=== PATIENT | female | born 1960 | race Caucasian/White ===

== ENCOUNTER 2017-08-04 23:12 | Observation (INO) | payer BC, OTHER ==
[2017-08-04] MEDS ORDERED: diphenhydrAMINE HCL 50 MG/ML VIAL ONE (23:22)
[2017-08-04] MEDS ORDERED: methylPREDNISolone SODIUM SUC 125 MG/2 ML VIAL ONE (23:22)
[2017-08-04] MEDS ORDERED: EPINEPHrine HCL AMP 1 MG/ML AMP ONE (23:24)
[2017-08-04] MEDS ORDERED: SODIUM CHLORIDE 0.9% 1000ML 1,000 ML ONE (23:28)
[2017-08-04] MEDS ORDERED: SODIUM CHLORIDE 0.9% (FLUSH) 10 ML SYG IV PRN (23:30)
[2017-08-04] MEDS ORDERED: methylPREDNISolone SODIUM SUC 125 MG/2 ML VIAL IV ONE (23:32)
[2017-08-04] MEDS ORDERED: diphenhydrAMINE HCL 50 MG/ML VIAL IV ONE ×2 (23:33→23:53)
[2017-08-04] MEDS ORDERED: EPINEPHrine INJ 0.1 MG/ML 10 ML SYG INJ ONE (23:33)
[2017-08-04] MEDS ORDERED: SODIUM CHLORIDE 0.9% 1000ML 1,000 ML IVS ONE (23:35)
[2017-08-04] MEDS ORDERED: LEVALBUTEROL NEBS 1.25 MG/3 ML VIAL NEB ONE (23:49)
--- NOTE | 2017-08-05 00:08 | RAD ---
EXAM DESCRIPTION: Chest,1 View CLINICAL HISTORY: 56 years, Female, resp distress COMPARISON: None. FINDINGS: A single frontal chest radiograph was performed. The lungs are moderately expanded and clear. The costophrenic sulci are sharp. The cardiac silhouette, hilar regions, trachea, soft tissues and bony structures are unremarkable. IMPRESSION: No acute cardiopulmonary disease. Electronically signed by: Svetlana Vazquez MD 08/05/2017 12:07 AM [facility]
[2017-08-05] MEDS ORDERED: EPINEPHrine HCL AMP 1 MG/ML AMP ONE (00:11)
[2017-08-05] MEDS ORDERED: EPINEPHrine HCL AMP 1 MG/ML AMP SUBCU ONE (00:14)
[2017-08-05] MEDS ORDERED: ALUM & MAG HYDROX-SIMETHICONE 30 ML, LIDOCAINE VISCOUS 2% 15 ML PO ONE ×2 (00:15)
[2017-08-05] MEDS ORDERED: SUCRALFATE 1 GM/10 ML 1 GM UD PO ONE (00:16)
[2017-08-05] MEDS ORDERED: ALUM & MAG HYDROX-SIMETHICONE 30 ML UD ONE (00:19)
[2017-08-05] MEDS ORDERED: LIDOCAINE HCL 2% (MOUTH-THROAT) 15 ML UD ONE (00:19)
--- NOTE | 2017-08-05 01:05 | ED.PDOC ---
History of Present Illness - General Chief Complaint: Respiratory Problem Stated Complaint: difficulty breathing Time Seen by Provider: 08/04/17 23:16 Source: patient Exam Limitations: no limitations - History of Present Illness Initial Comments: Judy Soto 56 y/o female brought by pov with chest tightness and SOB after taking cough medicine with codine and chlorphenamine.Had recently been recovering from flu A and was home for the last 7 days.Had been afebrile but with slightly productive cough still lingers and took first dose of the cough medication tonight which cause the above symptoms.Denies chronic medical problems. Timing/Duration: 1-3 hours Severity: moderate Activities at Onset: rest Possible Cause: no prior episodes Improving Factors: nothing Worsening Factors: nothing Associated Symptoms: other - see hpi Respiratory Risk Factors: other - recent flu a Allergies/Adverse Reactions: Allergies NO KNOWN ALLERGY Allergy (Verified 08/04/17 23:30) Home Medications: Ambulatory Orders Propranolol HCl [Propranolol HCl ER] 60 mg PO DAILY 06/11/13 Dexlansoprazole [Dexilant] 60 mg PO DAILY 02/20/14 Ibuprofen-Diphenhydramine HCl [Advil Pm] 1 cap PO PRN PRN 02/20/14 Review of Systems - Review of Systems Constitutional: States: no symptoms reported EENTM: States: no symptoms reported Respiratory: States: see HPI Cardiology: States: see HPI Gastrointestinal/Abdominal: States: no symptoms reported Genitourinary: States: no symptoms reported Musculoskeletal: States: no symptoms reported Skin: States: no symptoms reported Neurological: States: no symptoms reported All other Systems: Reviewed and Negative, No Change from Baseline Past Medical History (General) - Patient Medical History Hx Asthma: No Hx Congestive Heart Failure: No Hx Diabetes: No Hx Gastroesophageal Reflux: No Surgical History: cholecystectomy, other - gastric sleeve,btl - Vaccination History Hx Influenza Vaccination: Yes Hx Pneumococcal Vaccination: No - Social History Hx Alcohol Use: Yes - occ Hx Substance Use: No Hx Physical Abuse: No Hx Emotional Abuse: No Hx Suspected Abuse: No - Activities of Daily Living Patient Lives Alone: No - family Family Medical History - Family History Mother Family History: Unknown Physical Exam - Physical Exam General Appearance: Anxious, No apparent distress Eyes, Ears, Nose, Throat Exam: PERRL/EOMI, normal ENT inspection, pharynx normal Neck: full range of motion, supple, normal inspection Respiratory: chest non-tender, no respiratory distress, other - coarse breath sounds Cardiovascular/Chest: normal peripheral pulses, regular rate, rhythm, no murmur Peripheral Pulses: radial,right: 2+, radial,left: 2+ Gastrointestinal/Abdominal: normal bowel sounds, non tender, soft Extremity: normal range of motion, non-tender, no pedal edema, no calf tenderness Neurologic: no motor/sensory deficits, oriented x 3 Skin Exam: normal color, warm/dry Progress - Progress Progress: 08/05/17 01:08 Last Vital Signs Temp 98 F 08/04/17 23:35 Pulse 86 08/05/17 00:45 Resp 28 H 08/05/17 00:45 BP 135/78 08/05/17 00:45 Pulse Ox 99 08/05/17 00:45 She was given Epinephrine 0.3 mg im,Solu Medrol 125mg iv,Benadryl 25 mg iv has stable vital signs on arrival and was placed on [facility] oxygen after she had multiple 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 of 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 lasting for 1-2 minutes and has it almost every 20-25 minutes occurrence - Results/Orders Results/Orders: Laboratory Tests 08/04/17 08/04/17 23:30 23:30 WBC 9.6 RBC 5.28 Hgb 15.4 Hct 45.3 MCV 85.9 MCH 29.2 MCHC 33.9 RDW 13.6 Plt Count 295 MPV 7.9 Absolute Neuts (auto) 3.70 Absolute Lymphs (auto) 4.70 H Absolute Monos (auto) 0.90 H Absolute Eos (auto) 0.20 Absolute Basos (auto) 0.00 Neutrophils % 38.8 L Lymphocytes % 49.2 Monocytes % 9.2 H Eosinophils % 2.4 Basophils % 0.4 PT 10.1 INR 0.890 PTT (SP) 29.2 D-Dimer, Quantitative < 200 Sodium 139 Potassium 3.4 L Chloride 104 Carbon Dioxide 24 Anion Gap 14.4 BUN 16 Creatinine 0.81 BUN/Creatinine Ratio 19.8 Random Glucose 100 Serum Osmolality 278.8 Calcium 9.9 Magnesium 2.0 Total Bilirubin 0.8 Direct Bilirubin 0.1 Indirect Bilirubin 0.7 AST 52 H ALT 22 Alkaline Phosphatase 83 Creatine Kinase 63 CK-MB (CK-2) 1.3 CK-MB (CK-2) % Not Reportable Troponin I < 0.02 B-Natriuretic Peptide 23.3 Serum Total Protein 8.1 Albumin 4.5 - EKG/XRAY/CT EKG: Sinus - rhythm, no ST T wave changes Comments: heart rate -76 Departure - Departure Clinical Impression: History of influenza Chest pain Qualifiers: Chest pain type: unspecified Qualified Code(s): R07.9 - Chest pain, unspecified Allergic reaction caused by a drug Qualifiers: Encounter type: initial encounter Qualified Code(s): T78.40XA - Allergy, unspecified, initial encounter Time of Disposition: 03:02 - D/W Gasper Polanco -ANP/hospitalist for admit Disposition: Admit Patient Condition: Fair Departure Forms: Patient Portal Self Enrollment Referrals: Yaya Israel MD [Primary Care Provider] - 1-2 Weeks Home Medications: Ambulatory Orders Propranolol HCl [Propranolol HCl ER] 60 mg PO DAILY 06/11/13 Dexlansoprazole [Dexilant] 60 mg PO DAILY 02/20/14 Ibuprofen-Diphenhydramine HCl [Advil Pm] 1 cap PO PRN PRN 02/20/14 Decision To Admit - Decistion To Admit Decision to Admit Reason: Admit from ER - history of allergic reaction and chest pain symptoms non specifi for hospital obs need serial cardiac enzymes and for monitoring of rebound symptoms of drug reaction Decision to Admit Date: 08/05/17 Decision to Admit Time: 03:02
[2017-08-05] MEDS ORDERED: diphenhydrAMINE HCL 50 MG/ML VIAL IV ONE (01:17)
--- NOTE | 2017-08-05 02:07 | CT ---
Procedure: CT ABDOMEN ANGIOGRAPHY WITH IV CONTRAST Exam Date: 08/05/2017 Ordering Provider: Tanner Samano Clinical Indication: Dyspnea Comparison: None Technique: Using a helical scanner, sequential axial imaging of the abdominal aorta was obtained following the administration of intravenous contrast. Coronal and sagittal MIPS were generated. This exam was performed according to our departmental dose optimization program which includes use of automated exposure control, adjustment of the mA and/or kV according to patient size and/or use of iterative reconstruction technique. Findings: Review of conventional CT imaging was obtained. Prior cholecystectomy. Liver, spleen, pancreas, adrenal glands, kidneys are unremarkable. Postsurgical changes in the stomach. Mural thickening involving the gastric antrum. No bowel obstruction. Bones are nonacute. The abdominal aorta is of normal diameter. There is no dissection or aneurysm. The celiac and SMA origins are intact. There is a single right renal artery without stenosis. There is a single left renal artery without stenosis. The right common iliac artery is patent without stenosis The right external iliac artery is patent without stenosis. The left common iliac artery is patent without stenosis. The left external iliac artery is patent without stenosis. Impression: 1. Mural thickening involving the gastric antrum could represent changes of gastritis. 2. No abdominal aortic aneurysm or dissection. Electronically signed by: Anam Ceballos MD 08/05/2017 2:06 AM [employer]
[2017-08-05] MEDS ORDERED: PANTOPRAZOLE INJECTION 40 MG in SODIUM CHLORIDE 0.9% 100ML 100 ML IVPB ONE (02:27)
[2017-08-05] MEDS ORDERED: SODIUM CHLORIDE 0.9% 100ML 100 ML IVPB ONE (02:30)
[2017-08-05] MEDS ORDERED: PANTOPRAZOLE SODIUM IV 40 MG VIAL ONE (02:30)
[2017-08-05] MEDS ORDERED: LEVALBUTEROL NEBS 1.25 MG/3 ML VIAL NEB ONE (02:38)
[2017-08-05] MEDS ORDERED: diphenhydrAMINE HCL 50 MG/ML VIAL IV PRN (03:37)
[2017-08-05] MEDS ORDERED: NITROGLYCERIN 0.4 MG 25 EA TAB SL PRN (03:40)
[2017-08-05] MEDS ORDERED: MORPHINE SULFATE INJ 10 MG/ML VIAL IV PRN (03:40)
[2017-08-05] MEDS ORDERED: SODIUM CHLORIDE 0.9% (FLUSH) 10 ML SYG IV PRN (03:40)
[2017-08-05] MEDS ORDERED: ACETAMINOPHEN 325 MG TAB PO PRN (03:40)
[2017-08-05] MEDS ORDERED: IV SET AND CAP CHANGE INJ INJ SCH (04:00)
[2017-08-05] MEDS ORDERED: raNITIdine HCL INJ 50 MG in SODIUM CHLORIDE 0.9% 50ML 50 ML IVPB SCH (04:00)
[2017-08-05] MEDS ORDERED: raNITIdine HCL INJ 25 MG/ML VIAL ONE (04:13)
[2017-08-05] MEDS ORDERED: SODIUM CHLORIDE 0.9% 50ML 50 ML ONE (04:14)
[2017-08-05] MEDS: KCL 40MEQ/NS 1,000 ML IVS PRN ×2 (04:27→12:09)
[2017-08-05] MEDS ORDERED: SODIUM CHLORIDE 0.9% (FLUSH) 10 ML SYG IV SCH (09:00)
[2017-08-05 14:52] VITALS: O2SAT 100
[2017-08-05] MEDS ORDERED: SODIUM CHLORIDE 0.9% (FLUSH) 10 ML SYG IV ONE (17:15)
[2017-08-05 17:32] VITALS: BP 114/70; TEMP 98.6
--- NOTE | 2017-08-05 20:24 | SSS ---
SUPERVISING PHYSICIAN: Adalid Schulz M.D. DIAGNOSES ON DISCHARGE: 1. Adverse reaction to medication to include Tuzistra. 2. Chest pains with no evidence of acute myocardial ischemia felt to be secondary to adverse reaction to Tuzistra showing resolution of symptoms with Benzodiazepines, H1 H2 blockers, corticosteroids and Epinephrine. 3. Elevated liver functions, uncertain etiology, possibly stress related due to acute allergic reaction. 4. Mild hypokalemia resolved with fluids. 5. Depression and anxiety currently on Trintellix. REASON FOR HOSPITALIZATION: Ms. 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. She reported that she started experiencing some chest tightness she described as vice antiquer tightness with shortness of breath shortly after she took cough medicine with codeine and chlorpheniramine by the trade name Tuzistra. She noted that she had been recovering from a recent Influenza A infection at home for the last 7 days. She had been afebrile, just with a slight productive cough and had taken her initial first dose of a cough medicine the same night of admission to the Emergency Department with the onset of symptoms. She denied any major chronic medical problems. Initially her vital signs showed that she was hypertensive with a blood pressure of 149/104, heart rate 80, satting 99% on room air but showing some mild respiratory distress with respirations of 28. She was given Solu-Medrol, Benadryl, Ativan, Epinephrine which did result in resolution of her symptoms over a period of time. She never presented with any kind of respiratory stridor, only major complaint again was the vice-like antiquer pain she described that was actually coming in waves very 25 to 30 minutes. Her initial laboratory studies showed that her troponin was within normal limits and her EKG showed sinus rhythm with no ST or T wave changes. Her symptoms slowly resolved and the patient was then admitted to the Medical/Surgical floor for further cardiac telemetry monitoring and observation for concerns for rebound reaction. Of note on the medicine that she took, it is an extended release codeine therefore there were concerns that with the slow release mechanism of the medicine she could certainly have a rebound effect over the next 12 hours. She was placed in Observation in stable condition. PAST MEDICAL HISTORY: No chronic medical history listed. PAST SURGICAL HISTORY: 1. Cholecystectomy. 2. Gastric sleeve procedure. CURRENT MEDICATIONS: 1. Senokot 2 tablets at bedtime. 2. Trintellix 5 mg daily. ALLERGIES: TUZISTRA. FAMILY HISTORY: Noncontributory. SOCIAL HISTORY: The patient lives in [place]. She is . 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. She denies ever smoking and drinks occasional alcohol on a social basis. Denies any illicit drug use. PHYSICAL EXAMINATION: VITAL SIGNS: Initial vital signs on presentation to the Emergency Department prior to initiation of treatment showed blood pressure 149/104 with heart rate 81, temperature 98, satting 99% on room air with some mild distress with respiration efforts at 28. After treatment and decrease in her symptoms on admission to the Medical/Surgical floor pulse was 86, blood pressure 126/83, satting 98% on nasal cannula at 2 liters. Admission weight was 63.5 kg. GENERAL: On examination in the Emergency Room, the patient at that time was showing to be in no acute distress, comfortable, having just received a dose of Ativan prior to assessment, being alert and again showing no acute distress. HEENT: Tympanic membranes are clear bilaterally. Oropharynx was pink and moist without any lesions. NECK: Supple, non-tender with full range of motion. No jugular venous distention was noted. CHEST: Lungs were clear to auscultation, just slightly diminished towards the bases bilaterally. CARDIOVASCULAR: Regular rate and rhythm without any appreciable murmurs, gallops, or rubs. ABDOMEN: Soft, non-tender. Positive bowel sounds. EXTREMITIES: No clubbing, cyanosis or edema. NEUROLOGIC: She was alert and oriented times three. Facial features were symmetrical. Extraocular movements are within normal limits. There was no notable nystagmus. INTEGUMENT: Skin was warm and dry. LABORATORY STUDIES: CBC initially on admission showed a normal white count at 9 ,600, hemoglobin 15.4, hematocrit 45.3, platelet count 295,000. Differential showed to be without a left shift. Coagulation studies showed a normal PT, PTT and D-dimer. Chemistries initially on admission showed just a slightly low potassium at 3.4. Liver functions showed just an elevated AST at 52. All other chemistries were shown to be within normal limits with BUN 16, creatinine 0.81. Troponin initially on admission was less than 0.02. Repeat troponin after admission showed it to be less than 0.02. Liver enzymes did show elevation at the time of discharge with AST being 709, ALT 407 and alkaline phosphatase 129. Glucose 132. Electrolytes normalized. RADIOLOGY: Chest x-ray per radiology interpretation of single view chest showed no acute cardiopulmonary disease. CTA of the abdomen showed mural thickening involving the gastric antrum which could represent changes of gastritis. No abdominal aortic aneurysm or dissection was noted per radiology interpretation. HOSPITAL COURSE: Ms. Soto was placed in Observation from the Emergency Room after she experienced an adverse reaction to Tuzistra shortly after she took it at night which she took along with her antidepressant. When she presented to the Emergency Department , she was having vise-like chest pains. She was initiated on anaphylactic reaction protocol, was given Epinephrine, Benadryl, breathing treatments, fluids with good improvement in her symptoms and at time of admission to the Medical/Surgical floor she was reporting that her pain had gone down to a 3 and was continuing to subside. On the Medical/Surgical floor, she was continued on IV fluids. She required no additional interventions and had no recurrence of her symptoms. Her EKG on the monitor showed no changes. She remained in the hospital for well over 12 hours and again was showing no rebound effects and was pain free, and was felt stable to be discharged home for close clinical followup in regards to liver functions. She was not having any abdominal pains. No nausea, vomiting or diarrhea. PLAN: Ms. Soto was discharged out of Observation on 08/05/17 to have close clinical followup with Dr. Israel on Tuesday. She is to have repeat liver enzymes with results called to Dr. Israel. She was given 1 new prescription which included an EpiPen with 1 refill and instructed to carry one in the car and at home. She was told to no longer take her Tuzistra and to disregard the remaining as instructed. She was to resume her other medications as prior to hospitalization. She was given instructions should she have any return of symptoms to return to the Emergency Department immediately for further evaluation and treatment. Diet at discharge was regular diet as tolerated. Activity is increase as tolerated. Condition at discharge was stable. [id number] MTDD
== END 2017-08-05 19:50 | disposition home or self-care (01) ==
LOC: ER 23:12 → MS 08-05 03:16
PROVIDERS: ADMIT Nurse Practitioner Family; ATTEND Nurse Practitioner Family
DX: R07.89 Other chest pain (principal); T45.0X5A Adverse effect of antiallergic and antiemetic drugs, initial encounter; R06.02 Shortness of breath; R79.89 Other specified abnormal findings of blood chemistry; E87.6 Hypokalemia; F32.9 Major depressive disorder, single episode, unspecified; F41.9 Anxiety disorder, unspecified; Z79.899 Other long term (current) drug therapy; Z88.8 Allergy status to other drugs, medicaments and biological substances; Z98.84 Bariatric surgery status; Y92.009 Unspecified place in unspecified non-institutional (private) residence as the place of occurrence of the external cause
CPT/HCPCS: 36415 ×2; 71045; 74175; 80048; 80053; 80076; 82550 ×2; 82553 ×2; 83880; 84484 ×2; 85025; 85379; 85610; 85730; 93005 ×2; 94640; 94760; 96361; 96372 ×2; 96374; 96375 ×3; 96376 ×2; 99284; A4216; J1200 ×3; J2060; J2780; J2930; J3480 ×2; J7030; J7050; J7614

== ENCOUNTER → 2017-11-21 | Outpatient (CLI) | payer OTHER ==
--- NOTE | 2017-11-22 15:44 | MAM ---
EXAM DESCRIPTION: 3D Screening BILATERAL : Digital Mammography. CLINICAL HISTORY: 57 years Female SCREENING . No complaints. Remote family history of breast cancer. Postmenopausal. Currently on HRT. COMPARISON: 2-D digital screening bilateral study 10/14/2009. No prior reports available. TECHNIQUE: Bilateral CC and MLO projection full-field images, 3-D tomosynthesis digital mammographic technique. Also bilateral synthesized CC/ MLO full-field images. CAD not utilized. FINDINGS: The breast parenchymal density pattern is: Heterogeneously dense breast tissue, which may obscure small masses. No skin thickening or nipple retraction bilateral vascular calcifications. Bilateral solitary microcalcifications. No focal, stellate mass or density, focal asymmetry , and no suspicious microcalcifications bilaterally. Stable mammograms compared to prior study, taking into account differences in mammographic technique IMPRESSION: BI-RADS CATEGORY: 2 - BENIGN FINDINGS. FOLLOW UP: Routine digital bilateral screening, one year interval from October 2017. Written communication explaining the IMPRESSION and follow-up, will be mailed to the patient and referring health care provider. According to the [employer], yearly mammograms are recommended starting at age 40 and continuing as long as a woman is in good health. Any breast change noted on a breast self-exam should be reported promptly to the patient's healthcare provider. Breast MRI is recommended for women with an approximately 20-25% or greater lifetime risk of breast cancer, including women with a strong family history of breast or ovarian cancer and women who have been treated for Hodgkin's disease. A negative mammographic report should not delay tissue diagnosis in patients with significant clinical history or physical findings. Extremely dense breast tissue limits the sensitivity of digital mammography. Electronically signed by: Carlin Paz MD 11/22/2017 3:43 PM CDT
== END ==
LOC: MAMMO 15:00
PROVIDERS: ATTEND Family Medicine
DX: Z12.31 Encounter for screening mammogram for malignant neoplasm of breast (principal)

== ENCOUNTER 2018-08-29 23:50 | Emergency (ER) | payer OTHER ==
[2018-08-29] MEDS ORDERED: EPINEPHrine HCL AMP 1 MG/ML AMP ONE (23:59)
[2018-08-30] MEDS: EPINEPHrine HCL AMP 1 MG/ML AMP SUBCU ONE (00:26)
[2018-08-30] MEDS: NALOXONE HCL INJ 0.4 MG/ML VIAL IV ONE (00:26)
--- NOTE | 2018-08-30 00:28 | RAD ---
EXAM DESCRIPTION: Chest,1 View CLINICAL HISTORY: 57 years Female SOB COMPARISON: 08/04/2017 FINDINGS: The cardiomediastinal silhouette appears unremarkable. No consolidating infiltrates or pleural effusions. No pneumothorax. IMPRESSION: No acute abnormality is identified. Electronically signed by: Soni Cannon MD 08/30/2018 12:26 AM [employer]
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
[2018-08-30 02:24] VITALS: BP 100/68; TEMP 97.8; O2SAT 98
== END 2018-08-30 02:24 | disposition home or self-care (01) ==
LOC: ER 23:50
DX: R06.02 Shortness of breath (principal); R07.1 Chest pain on breathing; Z88.8 Allergy status to other drugs, medicaments and biological substances
CPT/HCPCS: 71045; 80053; 82550; 82553; 84484; 85025; 93005; J2310

== ENCOUNTER → 2020-08-21 | Outpatient (CLI) | payer BC, OTHER ==
--- NOTE | 2020-08-23 14:04 | MAM ---
EXAM DESCRIPTION: 3D Screening BILATERAL : Digital Mammography. CLINICAL HISTORY: 59 years Female SCREENING no complaints. Mother with ovarian cancer at age 35. Remote family history of breast cancer. Menarche age 14. Childbirth age 23. Menopause age 52. Currently on HRT. Lifetime risk of developing breast cancer (Tyrer-Cuzick model)(%): 6.9. COMPARISON: Bilateral screening digital breast tomosynthesis October 2017. TECHNIQUE: Bilateral CC and MLO projection full-field images: digital tomosynthesis mammographic technique. Bilateral digital 2-D full-field MLO images. CAD available for 2-D images. FINDINGS: The breast parenchymal density pattern is: Scattered areas of fibroglandular density. Vascular calcifications. Solitary microcalcifications. Axillary nodes. No skin thickening or nipple retraction No new focal, stellate mass or density, focal asymmetry , and no suspicious microcalcifications bilaterally. Stable mammograms compared to prior study. IMPRESSION: Benign exam. BIRAD CATEGORY: 2 BENIGN FINDINGS. RECOMMENDATIONS: FOLLOW UP: Routine digital bilateral mammographic screening, one year interval from July 2020. Written communication explaining the IMPRESSION and follow-up, will be mailed to the patient and referring health care provider. According to the [employer], yearly mammograms are recommended starting at age 40 and continuing as long as a woman is in good health. Any breast change noted on a breast self-exam should be reported promptly to the patient's healthcare provider. Breast MRI is recommended for women with an approximately 20-25% or greater lifetime risk of breast cancer, including women with a strong family history of breast or ovarian cancer and women who have been treated for Hodgkin's disease. A negative mammographic report should not delay tissue diagnosis in patients with significant clinical history or physical findings. Extremely dense breast tissue limits the sensitivity of digital mammography. Electronically signed by: Carlin Paz MD 08/23/2020 2:03 PM HOUSEKEEPER AND LAUNDRY ASSISTANT
== END ==
LOC: MAMMO 09:01
PROVIDERS: ATTEND Family Medicine
DX: Z12.31 Encounter for screening mammogram for malignant neoplasm of breast (principal); E34.8 Other specified endocrine disorders